=== PATIENT | male | born 1960 | race Two or more races ===

== ENCOUNTER 2024-04-14 04:45 | Emergency (ER) | payer MEDICAID ==
[~2024-04-14] VITALS: Ht 182.9 cm; Wt 190.9 kg
[2024-04-14 04:55] VITALS: TEMP 98.4
[2024-04-14] MEDS ORDERED: GLIP5TAB16 PO (04:58)
[2024-04-14] MEDS ORDERED: METO25 PO (04:58)
[2024-04-14 07:10] LABS: APPEARANCE,URINE CLEAR (CLEAR); BILIRUBIN,URINE NEGATIVE (NEGATIVE); COLOR,URINE COLORLESS (YELLOW); GLUCOSE, URINE (UA) NEGATIVE (NEGATIVE); KETONES,URINE NEGATIVE (NEGATIVE); LEUKOCYTE ESTERASE ,URINE NEGATIVE (NEGATIVE); NITRATE,URINE NEGATIVE (NEGATIVE); OCCULT BLOOD,URINE TRACE (NEGATIVE); PH,URINE 5.5 (5.0-8.0); PROTEIN,URINE NEGATIVE (NEGATIVE); SPECIFIC GRAVITIY, URINE 1.016 (1.003-1.030); UROBILINOGEN,URINE <=1.0 mg/dL (<=1.0)
[2024-04-14 07:26] LABS: RBC,URINE None Seen /HPF (0-2); WBC,URINE None Seen /HPF (0-5)
[2024-04-14 07:27] LABS: BACTERIA,URINE None Seen /HPF (None Seen); SQUAMOUS EPITHELIAL CELL,UR Few /LPF (None Seen)
[2024-04-14 09:34] VITALS: BP 135/95; PULSE 67; RESP 16; O2SAT 97
== END 2024-04-14 11:02 | disposition home or self-care (01) ==
LOC: EMS 05:09
DX: R39.11 Hesitancy of micturition (principal); E11.9 Type 2 diabetes mellitus without complications; I10 Essential (primary) hypertension; Z79.84 Long term (current) use of oral hypoglycemic drugs; Z79.899 Other long term (current) drug therapy
CPT/HCPCS: 81001; 82962; 99284